=== PATIENT | female | born 1965 | race Caucasian/White ===

== ENCOUNTER → 2016-08-26 | Outpatient (REF) | payer BC ==
[~2016-08-26] MED LIST: ADDE1TAB22 PO; CLON2TAB PO; IBUP600T26 PO; TECF240C PO; VICO5TAB16 PO; VITA400C97 PO; VITAMIN B 12 PO; VITAMIN D PO
[2016-08-26 18:17] LABS: BASO % 0.4 % (0.0-1.0); EOS # 0.1 K/mm3 (0.0-0.50); EOS % 2.4 % (0.0-3.0); LARGE UNSTAINED CELL # 0.1 K/mm3 (0.0-0.4); LARGE UNSTAINED CELL % 2.7 % (0.0-4.0); LYMPH # 0.8 K/mm3 (1.5-4.5); LYMPH % 15.5 % (24.0-44.0); MEAN CORPUSCULAR HEMOGLOBIN 30.1 pg (27.0-33.0); MEAN CORPUSCULAR HGB CONC 32.6 g/dl (32.0-36.5); MEAN CORPUSCULAR VOLUME 92.3 fl (80.0-96.0); MONO # 0.2 K/mm3 (0.0-0.8); MONO % 4.9 % (0.0-5.0); NEUTROPHILS # 3.7 K/mm3 (1.8-7.7); NEUTROPHILS % 74.1 % (36.0-66.0); PLATELET COUNT, AUTOMATED 291 k/mm3 (150-450); RED CELL DISTRIBUTION WIDTH 12.4 % (11.5-14.5); WHITE BLOOD COUNT 4.9 K/mm3 (4.0-10.0)
[2016-08-26 18:35] LABS: ALBUMIN 4.2 GM/DL (3.2-5.2); ALBUMIN/GLOBULIN RATIO 1.45 (1.00-1.93); ALKALINE PHOSPHATASE 44 U/L (45-117); ALT/SGPT 33 U/L (12-78); ANION GAP 6 MEQ/L (8-16); AST/SGOT 20 U/L (15-37); BILIRUBIN,TOTAL 0.8 MG/DL (0.2-1.0); BLOOD UREA NITROGEN 16 MG/DL (7-18); CALCIUM LEVEL 8.6 MG/DL (8.5-10.1); CARBON DIOXIDE LEVEL 29 MEQ/L (21-32); CHLORIDE LEVEL 102 MEQ/L (98-107); CREATININE FOR GFR 0.62 MG/DL (0.55-1.02); GLOMERULAR FILTRATION RATE > 60.0 (>51); GLUCOSE, FASTING 82 MG/DL (70-105); POTASSIUM SERUM 4.6 MEQ/L (3.5-5.1); SODIUM LEVEL 137 MEQ/L (136-145); TOTAL PROTEIN 7.1 GM/DL (6.4-8.2)
== END ==
LOC: M LAB REF 17:00
PROVIDERS: ATTEND Psychiatry & Neurology Neurology
DX: G35 Multiple sclerosis (principal)

== ENCOUNTER → 2017-09-22 | Outpatient (REF) | payer BC ==
[2017-09-22 17:52] LABS: BASO % 0.4 % (0.0-1.0); EOS # 0.2 10^3/uL (0.0-0.50); EOS % 3.3 % (0.0-3.0); HEMATOCRIT 38.3 % (36.0-47.0); HEMOGLOBIN 12.9 g/dl (12.0-15.5); IMMATURE GRANULOCYTE % 0.6 % (0-3.0); LYMPH # 0.7 10^3/uL (1.5-4.5); LYMPH % 13.5 % (24.0-44.0); MEAN CORPUSCULAR HEMOGLOBIN 30.1 pg (27.0-33.0); MEAN CORPUSCULAR HGB CONC 33.7 g/dl (32.0-36.5); MEAN CORPUSCULAR VOLUME 89.5 fl (80.0-96.0); MONO # 0.3 10^3/uL (0.0-0.8); MONO % 6.8 % (0.0-5.0); NEUTROPHILS # 3.6 10^3/uL (1.8-7.7); NEUTROPHILS % 75.4 % (36.0-66.0); PLATELET COUNT, AUTOMATED 310 10^3/uL (150-450); RED BLOOD COUNT 4.28 10^6/uL (4.00-5.40); RED CELL DISTRIBUTION WIDTH 12.8 % (11.5-14.5); WHITE BLOOD COUNT 4.8 10^3/uL (4.0-10.0)
[2017-09-22 18:10] LABS: ALBUMIN/GLOBULIN RATIO 1.25 (1.00-1.93); ALKALINE PHOSPHATASE 49 U/L (45-117); ALT/SGPT 34 U/L (12-78); ANION GAP 8 MEQ/L (8-16); AST/SGOT 24 U/L (7-37); BILIRUBIN,TOTAL 0.7 MG/DL (0.2-1.0); BLOOD UREA NITROGEN 12 MG/DL (7-18); CALCIUM LEVEL 8.7 MG/DL (8.5-10.1); CARBON DIOXIDE LEVEL 26 MEQ/L (21-32); CHLORIDE LEVEL 106 MEQ/L (98-107); CREATININE FOR GFR 0.55 MG/DL (0.55-1.30); GLOMERULAR FILTRATION RATE > 60.0 (>51); GLUCOSE, FASTING 77 MG/DL (70-100); POTASSIUM SERUM 4.1 MEQ/L (3.5-5.1); SODIUM LEVEL 140 MEQ/L (136-145); TOTAL PROTEIN 7.2 GM/DL (6.4-8.2)
== END ==
LOC: M LABNEURO 13:37
DX: G35 Multiple sclerosis (principal)
CPT/HCPCS: 80053

== ENCOUNTER → 2018-03-31 | Outpatient (REF) | payer BC ==
[2018-03-31 16:23] LABS: BASO % 0.7 % (0.0-1.0); EOS # 0.2 10^3/uL (0.0-0.50); HEMATOCRIT 41.1 % (36.0-47.0); HEMOGLOBIN 13.6 g/dl (12.0-15.5); IMMATURE GRANULOCYTE % 0.3 % (0-3.0); LYMPH % 16.2 % (24.0-44.0); MEAN CORPUSCULAR HEMOGLOBIN 30.4 pg (27.0-33.0); MEAN CORPUSCULAR HGB CONC 33.1 g/dl (32.0-36.5); MEAN CORPUSCULAR VOLUME 91.7 fl (80.0-96.0); MONO # 0.4 10^3/uL (0.0-0.8); MONO % 6.4 % (0.0-5.0); NEUTROPHILS # 4.4 10^3/uL (1.8-7.7); NEUTROPHILS % 73.4 % (36.0-66.0); PLATELET COUNT, AUTOMATED 298 10^3/uL (150-450); RED BLOOD COUNT 4.48 10^6/uL (4.00-5.40); RED CELL DISTRIBUTION WIDTH 11.9 % (11.5-14.5)
[2018-03-31 16:27] LABS: ALBUMIN 3.9 GM/DL (3.2-5.2); ALBUMIN/GLOBULIN RATIO 1.18 (1.00-1.93); ALKALINE PHOSPHATASE 43 U/L (45-117); ALT/SGPT 35 U/L (12-78); ANION GAP 7 MEQ/L (8-16); AST/SGOT 22 U/L (7-37); BILIRUBIN,TOTAL 0.8 MG/DL (0.2-1.0); BLOOD UREA NITROGEN 13 MG/DL (7-18); CALCIUM LEVEL 8.7 MG/DL (8.5-10.1); CARBON DIOXIDE LEVEL 27 MEQ/L (21-32); CHLORIDE LEVEL 105 MEQ/L (98-107); CREATININE FOR GFR 0.66 MG/DL (0.55-1.30); GLOMERULAR FILTRATION RATE > 60.0 (>51); GLUCOSE, FASTING 79 MG/DL (70-100); POTASSIUM SERUM 4.6 MEQ/L (3.5-5.1); SODIUM LEVEL 139 MEQ/L (136-145); TOTAL PROTEIN 7.2 GM/DL (6.4-8.2)
== END ==
LOC: M LABDRAWP 13:30
DX: G35 Multiple sclerosis (principal)
CPT/HCPCS: 80053

== ENCOUNTER → 2018-03-31 | Outpatient (REF) | payer BC ==
[2018-03-31 16:34] LABS: CHOLESTEROL LEVEL 193 MG/DL (<200); CHOLESTEROL RISK RATIO 3.015 (<5); FREE T4 0.84 NG/DL (0.76-1.46); HDL CHOLESTEROL 64 MG/DL (>40); LDL CHOLESTEROL 105 MG/DL (<100); NON-HDL-C 129 MG/DL; TRIGLYCERIDES LEVEL 121 MG/DL (<150)
== END ==
LOC: M LABDRAWP 13:32
DX: Z00.00 Encounter for general adult medical examination without abnormal findings (principal); Z13.220 Encounter for screening for lipoid disorders
CPT/HCPCS: 84443

== ENCOUNTER 2018-11-07 10:17 | Emergency (ER) | payer BC ==
[~2018-11-07] VITALS: Ht 162.6 cm; Wt 98.0 kg
[~2018-11-07 10:17] MED LIST changes: -CLON2TAB PO; +CLON2TAB7 PO; +IBUP-1022 PO; -IBUP600T26 PO; -VICO5TAB16 PO; +VICO5TAB17 PO
[2018-11-07] MEDS ORDERED: OXYC1TAB23 PO (11:35)
[2018-11-07] MEDS ORDERED: traMADol 50 MG TAB PO ONE (12:45)
[2018-11-07] MEDS ORDERED: ACETAMINOPHEN 325 MG TAB PO ONE (12:45)
[2018-11-07] MEDS ORDERED: LIDOCAINE 5% (LIDODERM) PATCH TD ONE (12:45)
[2018-11-07] MEDS ORDERED: ULTR50TA8 PO (13:38)
[2018-11-07] MEDS ORDERED: MEDR4PAK PO (13:38)
[2018-11-07] MEDS ORDERED: LIDO5DIS41 TD (13:38)
[2018-11-07 13:40] VITALS: BP 149/75
[2018-11-07] MEDS ORDERED: **NOTE PATIENT COMMENT** MISC XX SCH (21:00)
== END 2018-11-07 13:54 | disposition home or self-care (01) ==
LOC: M ED 10:17
DX: M54.9 Dorsalgia, unspecified (principal)

== ENCOUNTER → 2018-12-27 | Outpatient (REF) | payer BC ==
[~2018-12-27] MED LIST changes: +LIDO5DIS41 TD; +MEDR4PAK PO; +OXYC1TAB23 PO; +ULTR50TA8 PO
[2018-12-27 13:23] LABS: BASO % 0.6 % (0.0-1.0); EOS # 0.1 10^3/uL (0.0-0.50); EOS % 1.7 % (0.0-3.0); HEMATOCRIT 42.6 % (36.0-47.0); HEMOGLOBIN 14.2 g/dl (12.0-15.5); LYMPH # 0.8 10^3/uL (1.5-4.5); LYMPH % 17.5 % (24.0-44.0); MEAN CORPUSCULAR HEMOGLOBIN 31.2 pg (27.0-33.0); MEAN CORPUSCULAR HGB CONC 33.3 g/dl (32.0-36.5); MEAN CORPUSCULAR VOLUME 93.6 fl (80.0-96.0); MONO # 0.4 10^3/uL (0.0-0.8); MONO % 7.5 % (0.0-5.0); NEUTROPHILS # 3.5 10^3/uL (1.8-7.7); NEUTROPHILS % 72.3 % (36.0-66.0); PLATELET COUNT, AUTOMATED 259 10^3/uL (150-450); RED BLOOD COUNT 4.55 10^6/uL (4.00-5.40); WHITE BLOOD COUNT 4.8 10^3/uL (4.0-10.0)
[2018-12-27 13:25] LABS: ALBUMIN 4.4 GM/DL (3.2-5.2); ALT/SGPT 40 U/L (12-78); BILIRUBIN,TOTAL 1.2 MG/DL (0.2-1.0); BLOOD UREA NITROGEN 15 MG/DL (7-18); CALCIUM LEVEL 9.6 MG/DL (8.5-10.1); CARBON DIOXIDE LEVEL 31 MEQ/L (21-32); CHLORIDE LEVEL 106 MEQ/L (98-107); CREATININE FOR GFR 0.76 MG/DL (0.55-1.30); GLOMERULAR FILTRATION RATE > 60.0 (>51); GLUCOSE, FASTING 87 MG/DL (70-100); SODIUM LEVEL 142 MEQ/L (136-145); TOTAL PROTEIN 7.4 GM/DL (6.4-8.2)
[2018-12-27 13:33] LABS: TOTAL 25(OH) VITAMIN D 39.1 NG/ML (30.0-100.0)
[2018-12-27 13:34] LABS: FOLATE 18.9 NG/ML; VITAMIN B12 LEVEL 391 PG/ML
== END ==
LOC: M LABNEURO 09:58
PROVIDERS: ATTEND Psychiatry & Neurology Neurology
DX: G35 Multiple sclerosis (principal); M54.9 Dorsalgia, unspecified

== ENCOUNTER 2019-04-13 16:44 | Observation (INO) | payer BC ==
[~2019-04-13] VITALS: Ht 162.6 cm; Wt 71.3 kg
[2019-04-13 17:42] LABS: BASO % 0.3 % (0.0-1.0); EOS # 0.1 10^3/uL (0.0-0.5); EOS % 0.8 % (0.0-3.0); HEMATOCRIT 41.9 % (36.0-47.0); LYMPH % 3.7 % (24.0-44.0); MEAN CORPUSCULAR HEMOGLOBIN 30.3 pg (27.0-33.0); MEAN CORPUSCULAR HGB CONC 33.4 g/dl (32.0-36.5); MEAN CORPUSCULAR VOLUME 90.7 fl (80.0-96.0); MONO # 0.2 10^3/uL (0.0-0.8); MONO % 3.7 % (0.0-5.0); NEUTROPHILS # 5.7 10^3/uL (1.5-8.5); NEUTROPHILS % 91.3 % (36.0-66.0); PLATELET COUNT, AUTOMATED 273 10^3/uL (150-450); RED BLOOD COUNT 4.62 10^6/uL (4.00-5.40); WHITE BLOOD COUNT 6.3 10^3/uL (4.0-10.0)
[2019-04-13] MEDS ORDERED: NS 1,000 ML IV ONE (17:45)
[2019-04-13] MEDS ORDERED: MORPHINE 4 MG/ML 1ML VIAL/SYRINGE (J2270) IV ONE (17:45)
[2019-04-13] MEDS ORDERED: ONDANSETRON 4MG/2ML VIAL (J2405) IV ONE (17:45)
[2019-04-13 18:00] LABS: ALBUMIN 3.9 GM/DL (3.2-5.2); ALT/SGPT 23 U/L (12-78); BILIRUBIN,DIRECT 0.3 MG/DL (0.0-0.2); BILIRUBIN,TOTAL 1.1 MG/DL (0.2-1.0); BLOOD UREA NITROGEN 8 MG/DL (7-18); CARBON DIOXIDE LEVEL 30 MEQ/L (21-32); CHLORIDE LEVEL 104 MEQ/L (98-107); CREATININE FOR GFR 0.63 MG/DL (0.55-1.30); GLOMERULAR FILTRATION RATE > 60.0 (>51); GLUCOSE, FASTING 99 MG/DL (70-100); LIPASE 92 U/L (73-393); POTASSIUM SERUM 3.9 MEQ/L (3.5-5.1); SODIUM LEVEL 141 MEQ/L (136-145); TOTAL PROTEIN 7.3 GM/DL (6.4-8.2)
[2019-04-13] MEDS ORDERED: AUGM875T28 PO (18:15)
[2019-04-13] MEDS ORDERED: DICY10AM PO (18:16)
[2019-04-13 18:17] LABS: LYMPH # 0.2 10^3/uL (1.5-5.0)
[2019-04-13] MEDS ORDERED: ESTR3TA PO (18:17)
[2019-04-13] MEDS ORDERED: ZOFR4TAB16 PO (18:17)
[2019-04-13] MEDS ORDERED: PREGABALIN 75 MG CAP(LYRICA) PO SCH (21:00)
[2019-04-13] MEDS ORDERED: clonazePAM 1 MG TAB PO SCH (21:00)
[2019-04-13] MEDS ORDERED: KETO10TAB PO (21:10)
[2019-04-13] MEDS ORDERED: PROM25TA12 PO (21:10)
[2019-04-13] MEDS ORDERED: ISOVUE-370 76% 100ML VIAL (Q9967) As Ordered ONE (21:27)
[2019-04-13] MEDS ORDERED: KETOROLAC 30 MG/ML VIAL (J1885) IV ONE (21:30)
--- NOTE | 2019-04-13 22:38 | REPVR ---
PROCEDURE INFORMATION: Exam: CT Abdomen And Pelvis With Contrast Exam date and time: 04/13/2019 9:40 PM Clinical history: 53 years old, female; Abdominal pain; Localized; Right lower quadrant (rlq); Additional info: Rlq pain TECHNIQUE: Imaging protocol: Computed tomography of the abdomen and pelvis with intravenous contrast. Radiation optimization: All CT scans at this facility use at least one of these dose optimization techniques: automated exposure control; mA and/or kV adjustment per patient size (includes targeted exams where dose is matched to clinical indication); or iterative reconstruction. Contrast material: ISOVUE 370; Contrast volume: 100 ml; Contrast route: IV; COMPARISON: CT ABDOMEN AND PELVIS WITH CONTRAST 04/12/2019 1:10:00 PM US PELVIC NON-OB COMPLETE 07/17/2014 12:13 PM (The reports from these studies were not available for review at the time of this interpretation.) FINDINGS: Lungs: There is mild dependent atelectasis in both lower lobes. Heart: No cardiomegaly. There is a trace amount of fluid in the pericardial sac. Liver: The attenuation of the liver is more than 40 Hounsfield units lower in attenuation compared to the spleen, which is compatible with fatty liver infiltration. No liver lesion is seen. The contour of the liver is smooth. No hepatomegaly is noted. Gallbladder and bile ducts: No calcified gallstones are seen. No gallbladder wall thickening, pericholecystic fluid, or pericholecystic inflammatory changes are identified. No dilation of the intrahepatic or extrahepatic bile ducts is noted. Pancreas: Normal. No ductal dilation. Spleen: Normal. No splenomegaly. Incidental note is made of a small accessory spleen. Adrenals: Normal. No mass. Kidneys and ureters: The kidneys are normal in appearance. No renal lesion is identified. No calculi are seen in the kidneys or ureters. There is no hydronephrosis or hydroureter. There are no wedge-shaped areas of low attenuation in the kidneys to suggest pyelonephritis. There is no renal abscess or perinephric fluid collection. Stomach and bowel: There is mild sigmoid diverticulosis without evidence for diverticulitis. There is no evidence for a bowel obstruction, colitis, pneumatosis intestinalis, intussusception, volvulus, or perforated viscus. There is liquid feces in the colon, which will lead to diarrhea. The terminal ileum is unremarkable. Appendix: Normal. No evidence for appendicitis. Intraperitoneal space: There is a surgical clip in the right lower quadrant of the abdomen. No fluid collection. No free air. Retroperitoneal space: Unremarkable. No fluid collection. No mass. Vasculature: The abdominal aorta is patent, normal in caliber, and there is no dissection. The renal arteries, celiac artery, superior mesenteric artery, inferior mesenteric artery, iliac arteries, and common femoral arteries are patent. There are minimal atherosclerotic calcifications. The hepatic veins, portal veins, splenic vein, superior mesenteric vein, inferior mesenteric vein, and renal veins are patent. Incidental note is made of small round calcifications in the pelvis, which are compatible with phleboliths. Lymph nodes: Normal. No enlarged lymph nodes. Bladder: Unremarkable. No calculi or masses are noted in the bladder. Reproductive: There has been a hysterectomy. The ovaries are not identified and may have been removed. No adnexal mass is noted. There is a surgical clip in the right side of the pelvis. Bones/joints: The imaged bony structures are intact. There is no suspicious osteolytic or osteoblastic lesion. Incidental note is made of a small bone island in the L4 vertebral body. There are degenerative changes in the lumbar spine, most severe at the L1-L2 level, where there is severe loss of disc height and extensive endplate sclerosis. There is a grade 1 anterolisthesis of L4 on L5 secondary to severe osteoarthritis of the L4-L5 facet joints. Soft tissues: There is a tiny fat containing umbilical hernia. There is also a tiny fat containing midline infraumbilical hernia located approximately 2 cm inferior to the umbilicus (image 69 of the sagittal series 203). IMPRESSION: 1. No acute findings in the abdomen or pelvis. Normal appendix. 2. Mild sigmoid diverticulosis without evidence for diverticulitis. 3. Liquid feces in the colon, which will lead to diarrhea. 4. Fatty liver. 5. Tiny fat containing umbilical hernia. 6. Tiny fat containing midline infraumbilical hernia located approximately 2 cm inferior to the umbilicus. Electronically signed by: Bhanu Villagran On 04/13/2019 22:38:35 PM
[2019-04-13] MEDS ORDERED: ACETAMINOPHEN 325 MG TAB PO ONE (23:15)
[2019-04-13] MEDS ORDERED: ONDANSETRON 4 MG TAB (S0181) PO PRN (23:30)
[2019-04-13] MEDS ORDERED: ACETAMINOPHEN TAB 650MG DOSE (2X325MG) PO PRN (23:30)
[2019-04-14] MEDS ORDERED: LYRI75CA PO (00:05)
[2019-04-14] MEDS ORDERED: VITA100T12 PO (00:05)
[2019-04-14] MEDS ORDERED: ESTR625TA PO (00:05)
[2019-04-14] MEDS ORDERED: CHOL100029 PO (00:05)
[2019-04-14] MEDS ORDERED: TECF120C PO (00:05)
[2019-04-14] MEDS ORDERED: AMPH1TAB2 PO (00:05)
[2019-04-14] MEDS ORDERED: LIDO5TD TOP (00:05)
--- NOTE | 2019-04-14 00:25 | HPEPDOC ---
[facility] Medical History & Physical Date of Admission Apr 13, 2019 Date of Service: Apr 13, 2019 Primary Care Physician: Lauren Hagen PA-C. Attending Physician: KRISTEN BRAN MD History and Physical TIME OF SERVICE: 11:40 PM CHIEF COMPLAINT: Abdominal pain HISTORY OF PRESENT ILLNESS: This is a 53 year old female who presented with complaints of right lower quadrant abdominal pain for 1 week . It is made worse by movement. pressing on the abdomen and bending her right leg. The pain improves when she straightens her right leg. Associated symptoms include nausea, vomiting, and diarrhea. She returned to [place] yesterday from [place]; prior to leaving [place] she went to a urgent care clinic, and had a CT of the abdomen which was unremarkable; the patient brought the CD of the images, which were reviewed by our radiologist. The patient reports being told that, she has colitis, and should see a packaging mechanic. She was discharged home with Augmentin but came in today because the pain had not resolved. Per discussion with the ED provider he was about to discharge the patient when she spiked a fever. He repeated CT scan of the abdomen with contrast which was u nremarkable. REVIEW OF SYSTEMS: 12 point review of systems negative except as listed in HPI PAST MEDICAL/ SURGICAL HISTORY: Chronic back pain. Status post hysterectomy Status post SOCIAL HISTORY: Doesn't smoke ALLERGIES: Please see below. HOME MEDICATIONS: Please see below. PHYSICAL EXAMINATION: VITAL SIGNS: Please see below. GENERAL APPEARANCE: well-nourished, well-developed, HEENT: has conjunctival injection, mucous membranes slightly dry CARDIOVASCULAR: Regular rate and rhythm. No murmurs, rubs or gallops LUNGS: clear to auscultation bilaterally on room air ABDOMEN: DOS sounds hypoactive. Abdomen is very tender with light palpation of the right lower quadrant MUSCULOSKELETAL: range of motion intact in all 4 extremities NEUROLOGICAL: cranial nerves II-12 are grossly intact. Speech is not dysarthric PSYCHIATRIC: Alert and oriented to person, place and time, able to understand and follow commands LABORATORY DATA: See below. IMAGING: CT abdomen " IMPRESSION: 1. No acute findings in the abdomen or pelvis. Normal appendix. 2. Mild sigmoid diverticulosis without evidence for diverticulitis. 3. Liquid feces in the colon, which will lead to diarrhea. 4. Fatty liver. 5. Tiny fat containing umbilical hernia. 6. Tiny fat containing midline infraumbilical hernia located approximately 2 cm inferior to the umbilicus. ASSESSMENT: Ms. Blas is a 53-year-old female with past history of chronic back pain who will admitted for observation. Her abdominal pain is likely related to viral gastroenteritis / traveller's diarrhea. PLAN: 1. Traveler's Diarrhea/gastritis The fever is, likely due to the gastroenteritis Stool studies and CT of the abdomen contrast done in the ED were unremarkable Plan: The general medical floor for observation/IV fluids/Tylenol and Zofran when necessary / continue Augmentin 2. Chronic back pain Plan: Continue home meds DVT prophylaxis with SCDs. Disposition likely home tomorrow Vital Signs Vital Signs Date Time Temp Pulse Resp B/P (MAP) Pulse Ox O2 Delivery O2 Flow Rate FiO2 04/13/19 22:47 100.6 83 16 133/72 (92) 97 Room Air Laboratory Data Labs 24H Laboratory Tests 2 04/13/19 17:23: Immature Granulocyte % (Auto) 0.2, Neutrophils (%) (Auto) 91.3H, Lymphocytes (%) (Auto) 3.7L, Monocytes (%) (Auto) 3.7, Eosinophils (%) (Auto) 0.8, Basophils (%) (Auto) 0.3, Neutrophils # (Auto) 5.7, Lymphocytes # (Auto) 0.2L, Monocytes # (Auto) 0.2, Eosinophils # (Auto) 0.1, Basophils # (Auto) 0.0, Nucleated Red Blood Cells % (auto) 0.0, Urine Color STRAW, Urine Appearance CLEAR, Urine pH 7.0, Urine Specific [place] 1.002, Urine Protein NEGATIVE, Urine Glucose (UA) NEGATIVE, Urine Ketones 1+H, Urine Blood 1+H, Urine Nitrite NEGATIVE, Urine Bilirubin NEGATIVE, Urine Urobilinogen 0.2, Urine Leukocyte Esterase NEGATIVE, Urine WBC (Auto) 0, Urine RBC (Auto) 1, Urine Hyaline Casts (Auto) 0, Urine Bacteria (Auto) NEGATIVE, Urine Squamous Epithelial Cells 1, Urine Sperm (Auto) , Anion Gap 7L, Glomerular Filtration Rate > 60.0, Lactic Acid Level 0.8, Calcium Level 9.0, Total Bilirubin 1.1H, Direct Bilirubin 0.3H, Aspartate Amino Transf (AST/SGOT) 13, Alanine Aminotransferase (ALT/SGPT) 23, Alkaline Phosp hatase 55, Total Protein 7.3, Albumin 3.9, Albumin/Globulin Ratio 1.15, Lipase 92 CBC/BMP Laboratory Tests 04/13/19 17:23 Microbiology Microbiology 04/13/19 Gastrointestinal Tract Panel (PCR) - Final, Complete Home Medications Scheduled Amoxicillin/Potassium Clav (Augmentin 875-125 Tablet) 1 Each Tablet, 1 TAB PO BID PRESCRIBED 04/12/19 X10 DAYS Clonazepam (Clonazepam) 2 Mg Tab, 2 MG PO QHS Conjugated Estrogens (Premarin) 0.625 Mg Tablet, 0.625 MG PO DAILY Cyanocobalamin (Vitamin B-12) (Vitamin B-12) 100 Mcg Tablet, 100 MCG PO DAILY Dextroamphetamine/Amphetamine (Dextroamp-Amphetamin 15 mg Tab) 15 Mg Tablet, 15 MG PO DAILY Dimethyl Fumarate (Tecfidera) 120 Mg Capsule.dr, 120 MG PO BID Lidocaine (Lidocaine) 5% Adh..patch, 1 PATCH TOP DAILY APPLY FOR 12 HOURS, THEN REMOVE FOR 12 HOURS Pregabalin (Lyrica) 75 Mg Capsule, 150 MG PO QHS Vitamin D (Vitamin D3) 1,000 Unit Tablet, 1,000 UNITS PO DAILY Scheduled PRN Ibuprofen (Ibuprofen) 600 Mg Tab, 600 MG PO BID PRN for PAIN Allergies Coded Allergies: No Known Allergies (Unverified , 04/14/13) A-FIB/CHADSVASC A-FIB History Current/History of A-Fib/PAF?: No Current PO Anticoag Therapy: No KRISTEN BRAN MD Apr 14, 2019 00:25
[2019-04-14 01:15] VITALS: BP 126/62
[2019-04-14] MEDS: NS 1,000 ML IV SCH ×2 (01:30→09:21)
[2019-04-14] MEDS ORDERED: IBUPROFEN 600 MG TAB PO PRN (01:45)
[2019-04-14] MEDS: AUGMENTIN 875 MG TAB PO SCH ×2 (02:16→09:11)
[2019-04-14 07:18] LABS: HEMATOCRIT 34.5 % (36.0-47.0); MEAN CORPUSCULAR HEMOGLOBIN 31.7 pg (27.0-33.0); MEAN CORPUSCULAR HGB CONC 34.5 g/dl (32.0-36.5); PLATELET COUNT, AUTOMATED 193 10^3/uL (150-450); RED BLOOD COUNT 3.75 10^6/uL (4.00-5.40); WHITE BLOOD COUNT 3.2 10^3/uL (4.0-10.0)
[2019-04-14 07:23] LABS: HEMOGLOBIN 11.9 g/dl (12.0-15.5)
--- NOTE | 2019-04-14 07:38 | REP ---
CT ABDOMEN/PELVIS READING OF OUTSIDE STUDY: CT abdomen/pelvis performed at an outside institution, [facility], [place], with the intravenous administration of contrast. Sagittal and coronal reconstruction images are performed. Visualized lung bases demonstrate no evidence of consolidating infiltrate. There is focal fatty infiltration in the anterior liver along the fissure for the ligamentum teres. The spleen is normal in size with no intrinsic abnormality. Adrenals are normal. Pancreas demonstrates no mass or duct dilatation. Gallbladder is grossly unremarkable. There does not appear to be significant biliary dilatation. Kidneys appear unremarkable. There is no hydronephrosis. There is mild atherosclerotic calcification of the abdominal aorta without aneurysm. I see no evidence of lymphadenopathy in the abdomen or pelvis. There is no free air or free fluid. There is no bowel wall thickening. There is no evidence of small bowel obstruction. Metallic clip is seen in the right lower quadrant. No pelvic mass is seen. The appendix is normal. The patient appears to have had a hysterectomy and bilateral salpingo-oophorectomy. There are degenerative changes of the spine with severe disc space narrowing and subchondral sclerosis at L1-2. IMPRESSION: No acute abnormalities detected. Electronically Signed by Edgard Rowe MD 04/14/2019 03:39 P
[2019-04-14 07:45] LABS: BLOOD UREA NITROGEN 7 MG/DL (7-18); CALCIUM LEVEL 8.1 MG/DL (8.5-10.1); CARBON DIOXIDE LEVEL 28 MEQ/L (21-32); CHLORIDE LEVEL 109 MEQ/L (98-107); CREATININE FOR GFR 0.59 MG/DL (0.55-1.30); GLOMERULAR FILTRATION RATE > 60.0 (>51); GLUCOSE, FASTING 79 MG/DL (70-100); POTASSIUM SERUM 3.6 MEQ/L (3.5-5.1); SODIUM LEVEL 142 MEQ/L (136-145)
[2019-04-14 09:00] VITALS: BP 126/71
[2019-04-14] MEDS ORDERED: ADDERALL 5 MG TAB PO SCH (09:00)
[2019-04-14] MEDS ORDERED: LIDOCAINE 5% (LIDODERM) PATCH TOP SCH (09:00)
[2019-04-14] MEDS ORDERED: VITAMIN D 1,000 INTERNATIONAL UNITS TABLET PO SCH (09:00)
--- NOTE | 2019-04-14 14:31 | DS.PDOC ---
Discharge Summary General Date of Admission Apr 13, 2019 at 16:45 Date of Discharge 04/14/2019 Primary Care Physician: Lauren Hagen PA-C. Attending Physician: JOHNY ROCK MD Discharge Summary PROCEDURES PERFORMED DURING STAY: None. ADMITTING DIAGNOSES: 1. Gastroenteritis 2. Chronic back pain DISCHARGE DIAGNOSES: 1. Gastroenteritis 2. Chronic back pain COMPLICATIONS/CHIEF COMPLAINT: Fever,Nausea/Vomiting/Diarrhea. HISTORY OF PRESENT ILLNESS: This 63-year-old female who presented to the emergency room with about 1 week history of right lower quadrant abdominal pain. She states it is worse when she walks around and bends her right leg up. She states her pain improves if she lays flat and straightens right leg. She has also had intermittent nausea and an episode of vomiting the day prior to presentation while she was on the flight home from a work trip in [place]. She states she has also had intermittent diarrhea throughout the week, which has bee n or frequent over the past 2 days. She has been able to eat and keep down food at most times. During her work trip to [place]. She did visit an urgent care clinic for this complaint and had a CT of the abdomen which she states was negative. The patient states she was told she had colitis and should follow-up with a government instructor. She was also started on Augmentin by the urgent care clinic. She presented to the emergency room because her pain had not resolved and her symptoms worsened during her flight home from [place]. HOSPITAL COURSE: In emergency department, the patient was evaluated and CT scan revealed no acute findings. However, prior to discharge the patient started to develop a fever. The patient was then admitted for further observation. She was given Tylenol for fever and pain control. She was also started on IV fluids. On the following day, the patient's fever had resolved. GI tract panel was found to be negative. She is able to tolerate a regular diet with good oral intake. She does still have persistent pain in the right lower quadrant, which responds to the Tylenol. On the discharge, patient was found to be stable and safe for discharge home. DISCHARGE MEDICATIONS: Please see below. ALLERGIES: Please see below. PHYSICAL EXAMINATION ON DISCHARGE: VITAL SIGNS: Please see below. GENERAL: Alert, comfortable, in no acute distress HEENT: Normocephalic, atraumatic, PERRLA, EOMI, moist mucous membranes NECK: Trachea midline, no JVD CARDIOVASCULAR: Regular rate and rhythm, normal S1 and S2. No murmurs, rubs, or gallops RESPIRATORY: Clear to auscultation bilaterally with equal air entry bilaterally, no wheezing, rhonchi, rales ABDOMEN: Tender to palpation in the right lower quadrant, nontender in the upper quadrants and lower left quadrant. Soft, nondistended, bowel sounds present, no masses or hepatosplenomegaly appreciated EXTREMITIES: No cyanosis or edema. Pulses 2+/4 in bilateral upper and lower extremities SKIN: [place], warm, dry NEUROLOGIC: Alert and oriented 3 to person, place and time. Cranial nerves II12 grossly intact. No focal deficits appreciated PSYCHIATRIC: Mood and affect appropriate LABORATORY DATA: Please see below. IMAGING: (as read by radiologist) CT abdomen 04/13/2019: 1. No acute findings in the abdomen or pelvis. Normal appendix. 2. Mild sigmoid diverticulosis without evidence for diverticulitis. 3. Liquid feces in the colon, which will lead to diarrhea. 4. Fatty liver. 5. Tiny fat containing umbilical hernia. 6. Tiny fat containing midline infraumbilical hernia located approximately 2 cm inferior to the umbilicus. PROGNOSIS: Good ACTIVITY: As tolerated. DIET: As tolerated DISCHARGE PLAN: Home DISPOSITION: Home. DISCHARGE INSTRUCTIONS: 1. Follow-up with your PCP in 7-10 days 2. You may complete the course of amoxicillin, which was previously prescribed to you for this issue. 3. Remain compliant with treatment plan and medications 4. If your symptoms return or your condition worsens, please call your PCP or return to the ED for further evaluation. ITEMS TO FOLLOWUP ON ON OUTPATIENT: 1. Gastroenteritis, suggests referral to gastroenterology if not resolving with supportive care. DISCHARGE CONDITION: Stable. TIME SPENT ON DISCHARGE: 25 minutes. Vital Signs/I&Os Vital Signs Date Time Temp Pulse Resp B/P (MAP) Pulse Ox O2 Delivery O2 Flow Rate FiO2 04/14/19 09:00 97.4 59 18 126/71 (89) 97 Room Air I&O- Last 24 Hours up to 6 AM 04/14/19 06:00 Intake Total 1750 ml Output Total 100 ml Balance 1650 ml Laboratory Data Labs 24H Laboratory Tests 2 04/13/19 17:23: Immature Granulocyte % (Auto) 0.2, Neutrophils (%) (Auto) 91.3H, Lymphocytes (%) (Auto) 3.7L, Monocytes (%) (Auto) 3.7, Eosinophils (%) (Auto) 0.8, Basophils (%) (Auto) 0.3, Neutrophils # (Auto) 5.7, Lymphocytes # (Auto) 0.2L, Monocytes # (Auto) 0.2, Eosinophils # (Auto) 0.1, Basophils # (Auto) 0.0, Nucleated Red Blood Cells % (auto) 0.0, Urine Color STRAW, Urine Appearance CLEAR, Urine pH 7.0, Urine Specific [place] 1.002, Urine Protein NEGATIVE, Urine Glucose (UA) NEGATIVE, Urine Ketones 1+H, Urine Blood 1+H, Urine Nitrite NEGATIVE, Urine Bilirubin NEGATIVE, Urine Urobilinogen 0.2, Urine Leukocyte Esterase NEGATIVE, Urine WBC (Auto) 0, Urine RBC (Auto) 1, Urine Hyaline Casts (Auto) 0, Urine Bacteria (Auto) NEGATIVE, Urine Squamous Epithelial Cells 1, Urine Sperm (Auto) , Anion Gap 7L, Glomerular Filtration Rate > 60.0, Lactic Acid Level 0.8, Calcium Level 9.0, Total Bilirubin 1.1H, Direct Bilirubin 0.3H, Aspartate Amino Transf (AST/SGOT) 13, Alanine Aminotransferase (ALT/SGPT) 23, Alkaline Phosphatase 55, Total Protein 7.3, Albumin 3.9, Albumin/Globulin Ratio 1.15, Li pase 92 04/14/19 07:08: Nucleated Red Blood Cells % (auto) 0.0, Anion Gap 5L, Glomerular Filtration Rate > 60.0, Calcium Level 8.1L CBC/BMP Laboratory Tests 04/13/19 17:23 04/14/19 07:08 Microbiology Microbiology 04/13/19 Gastrointestinal Tract Panel (PCR) - Final, Complete Discharge Medications Scheduled Amoxicillin/Potassium Clav (Augmentin 875-125 Tablet) 1 Each Tablet, 1 TAB PO BID, (Reported) PRESCRIBED 04/12/19 X10 DAYS Clonazepam (Clonazepam) 2 Mg Tab, 2 MG PO QHS, (Reported) Conjugated Estrogens (Premarin) 0.625 Mg Tablet, 0.625 MG PO DAILY, (Reported) Cyanocobalamin (Vitamin B-12) (Vitamin B-12) 100 Mcg Tablet, 100 MCG PO DAILY, (Reported) Dextroamphetamine/Amphetamine (Dextroamp-Amphetamin 15 mg Tab) 15 Mg Tablet, 15 MG PO DAILY, (Reported) Dimethyl Fumarate (Tecfidera) 120 Mg Capsule.dr, 120 MG PO BID, (Reported) Lidocaine (Lidocaine) 5% Adh..patch, 1 PATCH TOP DAILY, (Reported) APPLY FOR 12 HOURS, THEN REMOVE FOR 12 HOURS Pregabalin (Lyrica) 75 Mg Capsule, 150 MG PO QHS, (Reported) Vitamin D (Vitamin D3) 1,000 Unit Tablet, 1,000 UNITS PO DAILY, (Reported) Scheduled PRN Ibuprofen (Ibuprofen) 600 Mg Tab, 600 MG PO BID PRN for PAIN, (Reported) Allergies Coded Allergies: No Known Allergies (Unverified , 04/14/13) GME ATTESTATION GME ATTESTATION My faculty preceptor for this patient encounter was physically present during the encounter and was fully available. All aspects of the patient interview, examination, medical decision making process, and medical care plan development were reviewed and approved by the faculty preceptor. The faculty preceptor is aware and concurs with the plan as stated in the body of this note and will attest to such by his/her cosignature. ATTENDING NOTE I, Johny Rock, have independently examined this patient and performed my own physical exam, as well as reviewed the documentation and edited where necessary. I have discussed in detail with the resident / student the findings and plan of treatment as documented by the resident / student and edited their note. I agree with their findings and treatment plan and have edited their documentation. I will continue to follow the patient during this hospital stay. Time spent on discharge 25 minutes KIRTI ANTOINE PGY-1 Apr 14, 2019 14:31 JOHNY ROCK MD Apr 14, 2019 16:11
[2019-04-14] MEDS ORDERED: **NOTE PATIENT COMMENT** MISC XX SCH (21:00)
== END 2019-04-14 15:30 | disposition home or self-care (01) ==
LOC: M ED 16:44 → M ED INP 16:45 → M PED 04-14 01:00
PROVIDERS: ADMIT Internal Medicine; ATTEND Internal Medicine
DX: K52.9 Noninfective gastroenteritis and colitis, unspecified (principal); M54.5 Low back pain; R50.9 Fever, unspecified; Z79.899 Other long term (current) drug therapy
CPT/HCPCS: 36415; 74177; 80048; 80076; 81001; 83605; 83690; 85025; 85027; 87507; 96361; 96374; 96375; 99284; J1885; J2270; J2405; Q9967

== ENCOUNTER → 2019-07-24 | Outpatient (REF) | payer BC ==
[~2019-07-24] MED LIST changes: +AMPH1TAB2 PO; +AUGM875T28 PO; +CHOL100029 PO; +DICY10AM PO; +ESTR3TA PO; +ESTR625TA PO; +KETO10TAB PO; +LIDO5TD TOP; +LYRI75CA PO; +PROM25TA12 PO; +TECF120C PO; +VITA100T12 PO; +ZOFR4TAB16 PO
[2019-07-24 13:52] LABS: BASO % 0.6 % (0.0-1.0); EOS # 0.1 10^3/uL (0.0-0.5); HEMATOCRIT 42.5 % (36.0-47.0); LYMPH # 0.8 10^3/uL (1.5-5.0); LYMPH % 15.1 % (24.0-44.0); MEAN CORPUSCULAR HEMOGLOBIN 30.3 pg (27.0-33.0); MEAN CORPUSCULAR HGB CONC 32.9 g/dl (32.0-36.5); MONO # 0.4 10^3/uL (0.0-0.8); MONO % 7.1 % (0.0-5.0); NEUTROPHILS # 3.8 10^3/uL (1.5-8.5); NEUTROPHILS % 74.8 % (36.0-66.0); PLATELET COUNT, AUTOMATED 270 10^3/uL (150-450); RED BLOOD COUNT 4.62 10^6/uL (4.00-5.40)
[2019-07-24 14:24] LABS: ALBUMIN 4.3 GM/DL (3.2-5.2); ALT/SGPT 27 U/L (12-78); BLOOD UREA NITROGEN 14 MG/DL (7-18); CALCIUM LEVEL 8.8 MG/DL (8.5-10.1); CARBON DIOXIDE LEVEL 32 MEQ/L (21-32); CHLORIDE LEVEL 103 MEQ/L (98-107); CREATININE FOR GFR 0.64 MG/DL (0.55-1.30); GLOMERULAR FILTRATION RATE > 60.0 (>51); GLUCOSE, FASTING 107 MG/DL (70-100); POTASSIUM SERUM 4.3 MEQ/L (3.5-5.1); SODIUM LEVEL 138 MEQ/L (136-145); TOTAL PROTEIN 7.1 GM/DL (6.4-8.2)
[2019-07-24 14:31] LABS: FOLATE 12.6 NG/ML; TOTAL 25(OH) VITAMIN D 22.5 NG/ML (30.0-100.0); VITAMIN B12 LEVEL 282 PG/ML
== END ==
LOC: M LABNEURO 12:56
PROVIDERS: ATTEND Psychiatry & Neurology Neurology
DX: G35 Multiple sclerosis (principal)